=== PATIENT | female | born 1955 | race Caucasian/White ===

== ENCOUNTER 2017-07-27 18:49 | Emergency (ER) ==
[2017-07-27] MEDS ORDERED: LIDOCAINE HCL 1% SDV SUBCUT STA (18:54)
[2017-07-27 18:55] VITALS: BP 160/94; TEMP 97; BMI 24.2
--- NOTE | 2017-07-27 19:16 | ED.PDOC ---
General ED Provider: Dr. ASIA GARCIA Chief Complaint: Finger Laceration Stated Complaint: LACERATION RIGHT THUMB Time Seen by Physician: 19:00 Mode of Arrival: Walk-In Information Source: Patient Exam Limitations: No limitations Nursing and Triage Documentation Reviewed and Agree: Yes Reviewed sepsis parameters & appropriate labs ordered?: Yes System Inflammatory Response Syndrome: Not Applicable Sepsis Protocol: For patient's 13 years and over: Temp is 96.8 and below OR 101 and greater Pulse >90 BPM Resp >20/minute Acutely Altered Mental Status Are patient's symptoms suggestive of a new infection, such as: -Pneumonia -Skin, Soft Tissue -Endocarditis -UTI -Bone, Joint Infection -Implantable Device -Acute Abdominal Infection -Wound Infection -Meningitis -Blood Stream Catheter Infection -Unknown System Inflammatory Response Syndrome: Not Applicable Musculoskeletal Complaint Exam - Hand/Wrist Complaint/Exam Location of Pain: Reports: Right, Digit #1 Mechanism of Injury: Reports: Other (LACERATION ) Onset/Duration: TODAY Symptoms Are: Still present Onset of Pain: Reports: Hours Initial Severity: Mild Current Severity: Mild Location: Reports: Discrete (RIGHT THUMB) Alleviating: Reports: None Aggravating: Reports: None Associated Signs and Symptoms: Denies: Swelling, Redness, Bruising, Fever, Weakness, Numbness, Tingling Hand/Wrist Findings: Present: Laceration Review of Systems - Review Of Systems Constitutional: Reports: No symptoms Eyes: Reports: No symptoms Ears, Nose, Mouth, Throat: Reports: No symptoms Respiratory: Reports: No symptoms Cardiac: Reports: No symptoms GI: Reports: No symptoms : Reports: No symptoms Musculoskeletal: Reports: No symptoms Skin: Reports: No symptoms Neurological: Reports: No symptoms Endocrine: Reports: No symptoms Hematologic/Lymphatic: Reports: No symptoms All Other Systems: Reviewed and Negative Past Medical History - Past Medical History Previously Healthy: Yes Endocrine: Reports: DM 2, Hypothyroid Cardiovascular: Reports: None Respiratory: Reports: None Hematological: Reports: None Gastrointestinal: Reports: None Genitourinary: Reports: None Neuro/Psych: Reports: None Musculoskeletal: Reports: None Cancer: Reports: None Last Menstrual Period: N/A - Surgical History General Surgical History: Reports: Hysterectomy, Cholecystectomy - Family History Family History: Reports: Unknown - Social History Smoking Status: Never smoker Hx Substance Use: No Alcohol Screening: Occasionally - Immunizations Tetanus Shot up to Date: Yes Physical Exam - Physical Exam Appearance: Well-appearing, No pain distress, Well-nourished Eyes: JEFFY, EOMI, Conjunctiva clear ENT: Ears normal, Nose normal, Oropharynx normal Respiratory: Airway patent, Breath sounds clear, Breath sounds equal, Respirations nonlabored Cardiovascular: RRR, Pulses normal, No rub, No murmur GI/: Soft, Nontender, No masses, Bowel sounds normal, No Organomegaly Musculoskeletal: Normal strength, ROM intact, No edema, No calf tenderness Skin: Warm, Dry (1CM LACERATION RIGHT THUMB DISTALLY) Neurological: Sensation intact, Motor intact, Reflexes intact, Cranial nerves intact, Alert, Oriented Psychiatric: Affect appropriate, Mood appropriate Procedures - Laceration/Wound Repair No standard instances Wound Description: Linear Wound Length (cm): 1CM Wound Width: 2MM Wound Depth: 0 Wound Explored: Clean Wound Irrigated: No Wound Prep: Saline Anesthesia: Lidocaine (1ML) Wound Debrided: Minimal Undermining: Minimal Wound Margins: Revised Wound Repaired With: Sutures (3.0) Suture Size and Type: 3 Number of Sutures: 4 Number of Cornelius: 0 Critical Care Note - Critical Care Note Total Time (mins): 0 Course - Course Orders, Labs, Meds: Orders Category Date Time Status Lidocaine HCl/Pf [Lidocaine HCl 1% Sdv] MEDS 07/27/17 18:54 Stat 5 ml SUBCUT ONCE STA Medications Discontinued Medications Generic Name Dose Route Start Last Admin Trade Name Stanfordq PRN Reason Stop Dose Admin Lidocaine HCl 5 ml 07/27/17 18:54 07/27/17 19:13 Lidocaine Hcl 1% Sdv SUBCUT 07/27/17 18:55 5 ml ONCE STA Administration Vital Signs: Temp Pulse Resp BP Pulse Ox 07/27/17 18:52 97.0 F L 80 20 160/94 H 98 Departure - Departure Time of Disposition: 19:18 Disposition: HOME SELF-CARE Discharge Problem: Laceration of finger Instructions: Laceration (ED) Condition: Good Pt referred to PMD for follow-up: Yes IPMP verified?: Yes Additional Instructions: Please call your Family Physician as soon as possible to schedule a follow-up appointment. SUTURE OFF 7 DAYS Allergies/Adverse Reactions: Allergies Dermabond Adverse Reaction (Uncoded 07/27/17 19:08) liquid bandaid Adverse Reaction (Uncoded 07/03/15 21:00) states, "reacts as a burn. skin bubbles up" Home Medications: Ambulatory Orders Aspirin [Aspirin EC] 81 mg PO DAILYWM 07/03/15 Cholecalciferol (Vitamin D3) [Vitamin D3] 1,000 unit PO DAILY 07/03/15 Irbesartan [Avapro] 150 mg PO DAILY 07/03/15 Metformin HCl [Glucophage] 500 mg PO BIDWM 07/03/15 Metronidazole [Metrogel] 60 gm TP DAILY 07/03/15 Nifedipine [Procardia] 10 mg PO DAILY 07/03/15 Simvastatin 20 mg PO DAILY 07/03/15 Triamcinolone Acetonide [Kenalog 0.1%] 1 applic TP DAILY 07/03/15 Empagliflozin [Jardiance] 10 mg PO DAILY 07/27/17 Estradiol [Minivelle] 1 each TD 2 TIMES PER WEEK 07/27/17 Pantoprazole Sodium [Protonix] 40 mg PO DAILY 07/27/17
== END 2017-07-27 19:28 | disposition home or self-care (01) ==
LOC: ED 18:49
DX: S61.011A Laceration without foreign body of right thumb without damage to nail, initial encounter (principal); W45.8XXA Other foreign body or object entering through skin, initial encounter
CPT/HCPCS: 96372; 99283